=== PATIENT | female | born 1955 | race African-American/Black ===

== ENCOUNTER 2022-07-30 16:12 | Inpatient (IN) ==
--- NOTE | 2022-07-30 17:07 | EKG ---
Test Reason : PULMONARY EMBOLISM Blood Pressure : */* mmHG Vent. Rate : 77 BPM Atrial Rate : 77 BPM P-R Int : 160 ms QRS Dur : 74 ms QT Int : 426 ms P-R-T Axes : 42 -15 25 degrees QTc Int : 482 ms Normal sinus rhythm Septal infarct , age undetermined Abnormal ECG No previous ECGs available Confirmed by Jaleel Romero ([id number]) on 08/02/2022 2:40:41 PM Referred By: Confirmed By: Jaleel Romero
[2022-07-30 17:17] LABS: BASOPHILS % (AUTO) 0.4 % (0.2-1.0); HEMATOCRIT 38.8 % (36.0-47.0); HEMOGLOBIN 12.7 g/dL (12.0-16.0); LYMPHOCYTES # (AUTO) 1.8 X10^3/uL (1.3-2.9); MEAN CORPUSCULAR HEMOGLOBIN 25.8 pg (27.0-34.0); MEAN CORPUSCULAR HGB CONC 32.8 g/dL (33.0-35.0); MEAN CORPUSCULAR VOLUME 78.4 fL (80.0-100.0); MEAN PLATELET VOLUME 9.2 fL (7.4-11.0); MONOCYTES # (AUTO) 0.4 x10^3/uL (0.3-0.8); MONOCYTES % (AUTO) 9.9 % (0.0-13.0); NEUTROPHILS # (AUTO) 2.2 x10^3/uL (2.2-4.8); NEUTROPHILS % (AUTO) 48.7 % (42.0-75.0); RED BLOOD COUNT 4.95 X10^6/uL (3.5-5.4); WHITE BLOOD COUNT 4.6 X10^3/uL (3.6-10.0)
[2022-07-30 17:18] LABS: ALANINE AMINOTRANSFERASE 42 Units/L (12-78); ALBUMIN 3.6 g/dL (3.4-5.0); ALKALINE PHOSPHATASE 71 Units/L (46-116); ASPARTATE AMINO TRANSFERASE 26 Units/L (15-37); BLOOD UREA NITROGEN 9 mg/dL (7-18); CALCIUM 8.5 mg/dL (8.5-10.1); CARBON DIOXIDE 31.5 mmol/L (21-32); CHLORIDE 105 mmol/L (98-107); CREATININE 1.15 mg/dL (0.55-1.02); SODIUM 143 mmol/L (136-145); TOTAL PROTEIN 7.5 g/dL (6.4-8.2); eGFR NON BLACK RACES 50 (>60)
[2022-07-30] MEDS: NS 1,000 ML IV 1,000 ML IV SCH (17:39)
[2022-07-30] MEDS ORDERED: HEPARIN SODIUM INJ 5000 UNITS IVP ONE (17:57)
[2022-07-30] MEDS: HEPARIN SODIUM IN D5W 25,000 UNITS/500 ML BAG IV PRN (18:09)
[2022-07-30] MEDS ORDERED: DUONEB 0.5 MG/3 MG (3 mL) NEB ONE (19:53)
[2022-07-30] MEDS: DUONEB 0.5 MG/3 MG (3 mL) NEB SCH ×2 (20:03→21:01)
--- NOTE | 2022-07-31 02:54 | EKG ---
Test Reason : chest pain, sob Blood Pressure : */* mmHG Vent. Rate : 72 BPM Atrial Rate : 72 BPM P-R Int : 162 ms QRS Dur : 78 ms QT Int : 442 ms P-R-T Axes : 39 -2 42 degrees QTc Int : 483 ms Normal sinus rhythm Minimal voltage criteria for LVH, may be normal variant ( R in aVL ) Prolonged QT Abnormal ECG Confirmed by Jaleel Romero ([id number]) on 08/02/2022 2:39:01 PM Referred By: Confirmed By: Jaleel Romero
[2022-07-31 04:27] LABS: BASOPHILS % (AUTO) 1.3 % (0.2-1.0); EOSINOPHILS # (AUTO) 0.1 x10^3/uL (0.0-0.2); EOSINOPHILS % (AUTO) 2.2 % (0.9-2.9); HEMOGLOBIN 11.7 g/dL (12.0-16.0); LYMPHOCYTES # (AUTO) 2.1 X10^3/uL (1.3-2.9); LYMPHOCYTES % (AUTO) 54.1 % (21.0-51.0); MEAN CORPUSCULAR HEMOGLOBIN 25.8 pg (27.0-34.0); MEAN CORPUSCULAR HGB CONC 33.4 g/dL (33.0-35.0); MEAN CORPUSCULAR VOLUME 77.3 fL (80.0-100.0); MEAN PLATELET VOLUME 9.3 fL (7.4-11.0); MONOCYTES # (AUTO) 0.4 x10^3/uL (0.3-0.8); NEUTROPHILS # (AUTO) 1.2 x10^3/uL (2.2-4.8); NEUTROPHILS % (AUTO) 32.4 % (42.0-75.0); RED BLOOD COUNT 4.53 X10^6/uL (3.5-5.4); RED CELL DISTRIBUTION WIDTH 14.8 % (11.6-16.5); WHITE BLOOD COUNT 3.8 X10^3/uL (3.6-10.0)
[2022-07-31 04:39] LABS: ALANINE AMINOTRANSFERASE 32 Units/L (12-78); ALBUMIN 3.1 g/dL (3.4-5.0); ALKALINE PHOSPHATASE 59 Units/L (46-116); ASPARTATE AMINO TRANSFERASE 19 Units/L (15-37); BLOOD UREA NITROGEN 9 mg/dL (7-18); CARBON DIOXIDE 28.6 mmol/L (21-32); CHLORIDE 105 mmol/L (98-107); COR CA(FOR HYPOALB) 8.7 mg/dL (8.5-10.1); CREATINE KINASE 144 Units/L (26-192); CREATININE 0.95 mg/dL (0.55-1.02); SODIUM 140 mmol/L (136-145); TOTAL PROTEIN 6.4 g/dL (6.4-8.2); eGFR NON BLACK RACES > 60 (>60)
--- NOTE | 2022-07-31 04:50 | EKG ---
Test Reason : chest pain, sob Blood Pressure : */* mmHG Vent. Rate : 65 BPM Atrial Rate : 65 BPM P-R Int : 162 ms QRS Dur : 72 ms QT Int : 452 ms P-R-T Axes : 41 2 44 degrees QTc Int : 470 ms Normal sinus rhythm Normal ECG Confirmed by Jaleel Romero ([id number]) on 08/02/2022 2:38:29 PM Referred By: Confirmed By: Jaleel Romero
[2022-07-31] MEDS: NS 1,000 ML IV 1,000 ML IV SCH ×3 (05:26→19:21)
[2022-07-31] MEDS ORDERED: K-RIDER 10 MEQ/NS 100 ML 10 MEQ/100 ML BAG IV PRN (05:31)
[2022-07-31] MEDS ORDERED: KLOR-CON PO PRN (05:31)
[2022-07-31] MEDS ORDERED: POTASSIUM CHL 40 MEQ/NS 0.45% 500 ML IV PRN (05:31)
[2022-07-31] MEDS ORDERED: POTASSIUM CHLORIDE LIQ 20 MEQ UDC PO PRN (05:31)
[2022-07-31] MEDS ORDERED: POTASSIUM CHL 60 MEQ/NS 0.45% 500 ML IV PRN (05:31)
[2022-07-31] MEDS ORDERED: MICRO K EXTEN CAP 10 MEQ PO PRN (05:31)
[2022-07-31] MEDS: MAGNESIUM SULFATE 1 GRAM/100 mL PREMIX 1 G/100 ML BAG IV PRN ×2 (06:10→07:48)
[2022-07-31 06:24] LABS: ERYTHROCYTE SEDIMENTATION RATE 39 MM/HOUR (0-20)
[2022-07-31] MEDS ORDERED: HEPARIN SODIUM INJ 5000 UNITS ONE (07:39)
[2022-07-31] MEDS ORDERED: HEPARIN SODIUM INJ 5000 UNITS IVP ONE (07:46)
[2022-07-31] MEDS: K-DUR TAB 20 MEQ PO PRN (07:47)
[2022-07-31] MEDS: HEPARIN SODIUM IN D5W 25,000 UNITS/500 ML BAG IV PRN (07:48)
[2022-07-31] MEDS: DUONEB 0.5 MG/3 MG (3 mL) NEB SCH ×3 (09:14→20:10)
--- NOTE | 2022-07-31 13:03 | DR.H&P ---
H&P - History & Physical for Day of: H&P Date: 07/30/22 - Chief Complaint Chief Complaint: SOB, CHEST TIGHTNESS, PULMONARY EMBOLISM - History of Present Illness History of Present Illness: IS A 67 YEAR OLD PATIENT OF OURS. SHE PRESENTED TO OFFICE WITH COMPLAINTS OF PERSISTENT SHORTNESS OF BREATH AND CHEST TIGHTNESS. SYMPTOMS HAVE BEEN PRESENT SINCE THE END OF MAY, DESPITE TAKING MULTIPLE ROUNDS OF ANTIBIOTICS AND STEROIDS. SHE REPORTED THAT SHORTNESS OF BREATH WAS PRESENT AT REST, BUT GOT WORSE WITH EXERTION. HER PMH INCLUDES HTN, OSTEOPOROSIS, PREDIABETES, DEPRESSION, , AND HYSTERECTOMY. PATIENT WAS SENT TO THE HOSPITAL ON 07/30/22 FOR OUTPATIENT CHEST CTA. FINDINGS REVEALED: Several subtle subsegmental pulmonary arterial filling defects are seen within the branch pulmonary arteries to the lower lobes and right middle lobe which would be compatible with very subtle pulmonary emboli at these locations. Bibasilar ground-glass changes are also noted. Mildly enlarged heart without a pericardial effusion observed. Borderline right hilar adenopathy which can be followed up with repeat chest CT imaging in 3 months for assurance. No other concerning lymph nodes appreciated. No other acute cardiopulmonary process is seen. DECISION WAS MADE TO ADMIT PATIENT TO THE HOSPTIAL INPATIENT STATUS FOR FURTHER TREATMENT OF BILATERAL PULMONARY EMBOLI. ON ARRIVAL TO THE HOSPTIAL, HER VITALS WERE: 98.2-83-19-99%-145/69. LABS WERE OBTAINED. WBC 4.6, RBC 4.95, HGB 12.7, HCT 38.8, PLT COUNT 153, ESR 39, PT 13.9, INR 1.10, PTT 24.4, SODIUM 143, POTASSIUM 3.6, CHLORIDE 105, CARBON DIOXIDE 31.5, BUN 9, CREATININE 1.15, GLUCOSE 80, CALCIUM 8.5, TOTAL BILI 0.40, AST 26, VIDYA 42, ALK PHOS 71, CRP 2.70, TOTAL PROTEIN 7.5, ALBUMIN 3.6, CREATINE KINASE 201, TROPONIN 5.9. A HYPERCOAGULABLE PANEL WAS COLLECTED. COVID-19 NEGATIVE. AN EKG WAS OBTAINED AND REVEALED: NORMAL SINUS RHYTHM WITH HR 77. SHE WAS STARTED ON NORMAL SALINE AT 50 ML/HR, A HEPARIN DRIP, DUONEBS TID, AND THE POTASSIUM AND MAGNESIUM PROTOCOLS. WE WILL RESUME HER HOME MEDICATIONS OF TESSALON PERLES, HCTZ, AND FLONASE. WE WILL OBTAIN AN ECHOCARDIOGRAM, CAROTID DOPPLER, AND BILATERAL LOWER EXTREMITY VENOUS DOPPLERS TO RULE OUT DVT. OTHERWISE, WE WILL FOLLOW-UP WITH AM LABS AND CONTINUE TO MONITOR. TIME SPENT ON CLINICAL ASSESSMENT, REVIWING LABS AND IMAGING, DECISION MAKING, AND DOCUMENTATION GREATER THAN 75 MINUTES. - Past Medical History Past Medical History: Depression, Hypertension Additional Medical History: OSTEOPOROSIS, PREDIABETES - Past Surgical History Surgical History: , Hysterectomy - Family History Family Medical History: Diabetes Mellitus, Cancer, [place], Coronary Artery Disease - Social History Does patient currently use any type of tobacco product: No Have you used tobacco products in the last 12 months: No Type of Tobacco Use: None Does any household member use tobacco: No Alcohol Use: None Drug Use: None - Medications Home Medications: moxifloxacin [From Avelox] Allergy (Verified 01/01/21 13:41) CONTINUE taking the following medications fluticasone propionate 50 mcg/actuation nasal spray,suspension 2 spray intranasal BID 07/30/22 [History] hydrochlorothiazide 25 mg tablet 1 tab PO QDAY 07/30/22 [History] meloxicam 15 mg tablet 1 tab PO QDAY 07/30/22 [History] - Review of Systems Constitutional: Weakness Eyes: No Symptoms Reported ENT: No Symptoms Reported Respiratory: Shortness of Breath, SOB with Excertion Cardiovascular: No Symptoms Reported Gastrointestinal: No Symptoms Reported Genitourinary: No Symptoms Reported Musculoskeletal: No Symptoms Reported Skin: No Symptoms Reported Neurological: Weakness - Physical Exam Vital Signs: Temperature 98.2 F Pulse Rate 67 Respiratory Rate 25 Blood Pressure [Left Arm] 136/58 Blood Pressure 123/73 O2 Sat by Pulse Oximetry 100 Oriented: Normal Eyes: Normal Ear: Normal Nose: Normal Throat: Normal Respiratory: Diminished Throughout Cardiovascular: Normal : Normal Auscultation: Bowel Sounds: Normal Palpation: Normal Tenderness: Normal Skin: Normal Musculoskeletal: Normal Psychiatric: Normal Mood Description: Calm Affect: Normal Speech Pattern: Clear - Assessment/Plan (1) Bilateral pulmonary embolism Status: Acute Plan: ADMIT, NORMAL SALINE AT 50 ML/HR, A HEPARIN DRIP, DUONEBS TID, AND THE POTASSIUM AND MAGNESIUM PROTOCOLS. RESUME HOME MEDS OF TESSALON PERLES, HCTZ, FLONASE (2) HTN (hypertension) Qualifiers: Hypertension type: primary hypertension Qualified Code(s): I10 - Essential (primary) hypertension Status: Chronic (3) Allergic rhinitis Qualifiers: Allergic rhinitis trigger: unspecified Allergic rhinitis seasonality: unspecified Qualified Code(s): J30.9 - Allergic rhinitis, unspecified Status: Acute - Allergies Allergies/Adverse Reactions: Allergies Allergy/AdvReac Type Severity Reaction Status Date / Time moxifloxacin [From Avelox] Allergy Verified 01/01/21 13:41
[2022-07-31] MEDS: TESSALON PERLES PO SCH ×2 (14:41→21:05)
[2022-07-31] MEDS: FLONASE NASAL SPRAY ENOSTRIL SCH ×2 (14:41→21:05)
[2022-07-31] MEDS: HYDROCHLOROTHIAZIDE 25 MG TAB PO SCH (14:42)
--- NOTE | 2022-07-31 16:08 | VAS ---
HISTORY: [Extremity pain, swelling, and edema]Study: Bilateral lower extremity Doppler venous ultrasound.TECHNIQUE: Multiple gutiérrez scale and color flow Doppler images of the deep venous system were obtained of the [right and left] lower extremity.FINDINGS:The deep venous system of the [right and left lower extremities were] evaluated from the level of the common femoral veins through the popliteal veins, bilaterally. Normal color flow and augmentation can be observed. In addition, normal compression is seen throughout the deep venous system. No Sanches's cyst is seen.IMPRESSION:1. Negative examination for DVT.Electronically signed by: PAOLA ROCA III (Jul 31, 2022 16:07:21)
--- NOTE | 2022-07-31 16:42 | VAS ---
HISTORY: Concern for carotid artery stenosis. Hypertension.EXAM: BILATERAL DOPPLER CAROTID ULTRASOUND EXAMTechnique: Multiple gutiérrez scale and color flow Doppler images of the right and left carotid arterial system were obtained.The vertebral arterial system was evaluated as well.Findings: Nonocclusive color flow Doppler is seen throughout the right and left carotid arterial system. No hemodynamically significant carotid arterial stenosis is seen based on velocity criteria. There is mild bilateral carotid atherosclerosis and soft atherosclerotic plaque formation of the bilateral carotid bulbs and ICAs with associated intimal thickening but without evidence for high-grade stenosis (>70%) or occlusion of the carotid arteries. The right and left vertebral artery demonstrate antegrade flow.IMPRESSION:Mild bilateral carotid atherosclerosis and plaque formation of the bilateral carotid bulbs and [in both] ICAs with [id number] associated carotid intimal thickening but without evidence for high-grade stenosis or occlusion of the carotid arteries, based on Doppler velocity criteria.Appropriate, antegrade, vertebral arterial flow.Peak right ICA velocity: 63 centimeter/seconds.Peak right CCA velocity: 73 centimeter/seconds.Peak left ICA velocity: 66 centimeter/seconds.Peak left CCA velocity: 85 centimeter/seconds.Right ICA to CCA ratio: 0.83.Left ICA to CCA ratio: 0.86.Electronically signed by: PAOLA ROCA III (Jul 31, 2022 16:40:38)
[2022-08-01 04:55] LABS: BASOPHILS % (AUTO) 0.6 % (0.2-1.0); EOSINOPHILS # (AUTO) 0.1 x10^3/uL (0.0-0.2); EOSINOPHILS % (AUTO) 2.6 % (0.9-2.9); HEMATOCRIT 36.6 % (36.0-47.0); LYMPHOCYTES # (AUTO) 1.7 X10^3/uL (1.3-2.9); LYMPHOCYTES % (AUTO) 46.4 % (21.0-51.0); MEAN CORPUSCULAR HEMOGLOBIN 25.5 pg (27.0-34.0); MEAN CORPUSCULAR HGB CONC 32.9 g/dL (33.0-35.0); MEAN CORPUSCULAR VOLUME 77.5 fL (80.0-100.0); MEAN PLATELET VOLUME 9.2 fL (7.4-11.0); MONOCYTES # (AUTO) 0.5 x10^3/uL (0.3-0.8); MONOCYTES % (AUTO) 12.5 % (0.0-13.0); NEUTROPHILS # (AUTO) 1.4 x10^3/uL (2.2-4.8); NEUTROPHILS % (AUTO) 37.9 % (42.0-75.0); RED BLOOD COUNT 4.72 X10^6/uL (3.5-5.4); RED CELL DISTRIBUTION WIDTH 15.1 % (11.6-16.5); WHITE BLOOD COUNT 3.6 X10^3/uL (3.6-10.0)
[2022-08-01] MEDS: DUONEB 0.5 MG/3 MG (3 mL) NEB SCH ×2 (05:00→13:00)
[2022-08-01] MEDS: TESSALON PERLES PO SCH (05:03)
[2022-08-01 05:09] LABS: ALANINE AMINOTRANSFERASE 28 Units/L (12-78); ALBUMIN 3.1 g/dL (3.4-5.0); ALKALINE PHOSPHATASE 64 Units/L (46-116); ASPARTATE AMINO TRANSFERASE 17 Units/L (15-37); BLOOD UREA NITROGEN 9 mg/dL (7-18); CALCIUM 8.2 mg/dL (8.5-10.1); CARBON DIOXIDE 28.9 mmol/L (21-32); CHLORIDE 105 mmol/L (98-107); COR CA(FOR HYPOALB) 8.9 mg/dL (8.5-10.1); CREATININE 0.91 mg/dL (0.55-1.02); MAGNESIUM 1.8 mg/dL (2.0-2.9); SODIUM 140 mmol/L (136-145); TOTAL PROTEIN 6.7 g/dL (6.4-8.2); eGFR NON BLACK RACES > 60 (>60)
[2022-08-01] MEDS: MAGNESIUM SULFATE 1 GRAM/100 mL PREMIX 1 G/100 ML BAG IV PRN ×2 (05:52→08:13)
[2022-08-01] MEDS: K-DUR TAB 20 MEQ PO PRN (08:11)
[2022-08-01] MEDS: FLONASE NASAL SPRAY ENOSTRIL SCH (08:12)
[2022-08-01] MEDS: HYDROCHLOROTHIAZIDE 25 MG TAB PO SCH (08:12)
[2022-08-01] MEDS: NS 1,000 ML IV 1,000 ML IV SCH (08:15)
[2022-08-01] MEDS ORDERED: XARELTO PO SCH (10:00)
[2022-08-01] MEDS ORDERED: AUGMENTIN 500 MG/125 MG TAB PO SCH (13:00)
[2022-08-01 14:02] VITALS: BP 143/70
[2022-08-05 06:08] LABS: ANTI-NUCLEAR ANTIBODY TEST None Detected (None Detected)
[2022-08-05 06:12] LABS: PROTEIN C ACTIVITY 164 % (83-168)
[2022-08-06 13:22] LABS: PROTHROMBIN G20210A Negative
== END 2022-08-01 14:23 | disposition home or self-care (01) | DRG 176 ==
LOC: ICU → OBSVTOIN 16:19
PROVIDERS: ADMIT Internal Medicine; ATTEND Internal Medicine
DX: B96.29 Other Escherichia coli [E. coli] as the cause of diseases classified elsewhere; I26.99 Other pulmonary embolism without acute cor pulmonale; I10 Essential (primary) hypertension; R06.02 Shortness of breath; R70.0 Elevated erythrocyte sedimentation rate; R07.89 Other chest pain; J30.89 Other allergic rhinitis

== ENCOUNTER 2023-07-21 10:40 | Observation (INO) ==
[2023-07-21 13:01] VITALS: BMI 35.4
[2023-07-21] MEDS ORDERED: TUSSIONEX PENNKINETIC SUSP PO PRN (15:37)
--- NOTE | 2023-07-21 16:03 | EKG ---
Test Reason : chest pain Blood Pressure : */* mmHG Vent. Rate : 60 BPM Atrial Rate : 60 BPM P-R Int : 152 ms QRS Dur : 72 ms QT Int : 450 ms P-R-T Axes : 36 -6 43 degrees QTc Int : 450 ms Normal sinus rhythm Moderate voltage criteria for LVH, may be normal variant ( R in aVL , [place] product ) Septal infarct , age undetermined Abnormal ECG When compared with ECG of 31-JUL-2022 04:33, T wave inversion now evident in Anterior leads Confirmed by Jaleel Romero ([id number]) on 07/24/2023 12:58:34 PM Referred By: Confirmed By: Jaleel Romero
[2023-07-21] MEDS ORDERED: NS 1/2 1,000 ML IV 1,000 ML IV ONE (16:23)
[2023-07-21 16:24] LABS: BASOPHILS # (AUTO) 0.1 X10^3/uL (0.0-0.1); BASOPHILS % (AUTO) 1.2 % (0.2-1.0); HEMATOCRIT 41.3 % (36.0-47.0); HEMOGLOBIN 13.3 g/dL (12.0-16.0); LYMPHOCYTES # (AUTO) 2.1 X10^3/uL (1.3-2.9); LYMPHOCYTES % (AUTO) 28.1 % (21.0-51.0); MEAN CORPUSCULAR HEMOGLOBIN 25.1 pg (27.0-34.0); MEAN CORPUSCULAR HGB CONC 32.1 g/dL (33.0-35.0); MEAN CORPUSCULAR VOLUME 78.1 fL (80.0-100.0); MEAN PLATELET VOLUME 8.6 fL (7.4-11.0); MONOCYTES # (AUTO) 0.7 x10^3/uL (0.3-0.8); MONOCYTES % (AUTO) 8.9 % (0.0-13.0); NEUTROPHILS # (AUTO) 4.6 x10^3/uL (2.2-4.8); NEUTROPHILS % (AUTO) 61.8 % (42.0-75.0); PLATELET COUNT 213 X10^3/uL (150.0-450.0); RED BLOOD COUNT 5.29 X10^6/uL (3.5-5.4); RED CELL DISTRIBUTION WIDTH 15.9 % (11.6-16.5); WHITE BLOOD COUNT 7.5 X10^3/uL (3.6-10.0)
[2023-07-21] MEDS: VSL#3 PO SCH (16:35)
[2023-07-21] MEDS: NS 1/2 1,000 ML IV 1,000 ML IV SCH (16:36)
[2023-07-21] MEDS: ROBITUSSIN DM PO SCH ×2 (16:36→20:52)
[2023-07-21] MEDS: ZOSYN VIAL 4.5 GRAMS 4.5 G in NS 100 ML IV 100 ML IV SCH ×2 (16:36→22:00)
[2023-07-21] MEDS: PULMICORT NEB TX 0.5 MG NEB SCH ×2 (16:39→20:20)
[2023-07-21 16:41] LABS: ALANINE AMINOTRANSFERASE 17 Units/L (12-78); ALBUMIN 3.9 g/dL (3.4-5.0); ALKALINE PHOSPHATASE 73 Units/L (46-116); ASPARTATE AMINO TRANSFERASE 7 Units/L (15-37); BLOOD UREA NITROGEN 13 mg/dL (7-18); CALCIUM 8.9 mg/dL (8.5-10.1); CARBON DIOXIDE 31.9 mmol/L (21-32); CHLORIDE 102 mmol/L (98-107); CREATININE 1.19 mg/dL (0.55-1.02); GLUCOSE 110 mg/dL (65-99); POTASSIUM 3.4 mmol/L (3.5-5.1); SODIUM 140 mmol/L (136-145); TOTAL PROTEIN 8.1 g/dL (6.4-8.2); eGFR NON BLACK RACES 48 (>60)
[2023-07-21] MEDS ORDERED: CONSULT PHARMACY - POTASSIUM & MAGNESIUM XX SCH (17:00)
[2023-07-21] MEDS: DUONEB 0.5 MG/3 MG (3 mL) NEB SCH ×2 (17:10→20:20)
[2023-07-21] MEDS ORDERED: K-DUR TAB 20 MEQ PO ONE (18:00)
--- NOTE | 2023-07-21 19:46 | RAD ---
PROCEDURE: Chest X-ray 1 View . HISTORY: Pneumonia. TECHNIQUE: AP view . COMPARISON: 01/01/2021. TECHNICAL QUALITY: Satisfactory . FINDINGS: Normal size heart . Mediastinum and hilar regions show no masses or lymphadenopathy . Normal central vascularity . No pulmonary consolidation, masses, pleural fluid, or pneumothorax . No acute bony abnormality . IMPRESSION: No active cardiopulmonary disease . Electronically signed by: Julio Hensley (Jul 21, 2023 19:44:36)
[2023-07-22] MEDS ORDERED: NS 1/2 1,000 ML IV 1,000 ML IV ONE ×2 (05:31→19:04)
[2023-07-22] MEDS: ZOSYN VIAL 4.5 GRAMS 4.5 G in NS 100 ML IV 100 ML IV SCH ×3 (05:48→22:00)
[2023-07-22] MEDS: MILK OF MAGNESIA PO PRN ×2 (05:54→23:41)
[2023-07-22 06:38] LABS: BASOPHILS % (AUTO) 0.4 % (0.2-1.0); EOSINOPHILS % (AUTO) 0.3 % (0.9-2.9); HEMATOCRIT 36.1 % (36.0-47.0); HEMOGLOBIN 11.7 g/dL (12.0-16.0); LYMPHOCYTES # (AUTO) 2.8 X10^3/uL (1.3-2.9); LYMPHOCYTES % (AUTO) 51.3 % (21.0-51.0); MEAN CORPUSCULAR HEMOGLOBIN 25.3 pg (27.0-34.0); MEAN CORPUSCULAR HGB CONC 32.4 g/dL (33.0-35.0); MEAN CORPUSCULAR VOLUME 78.1 fL (80.0-100.0); MEAN PLATELET VOLUME 9.3 fL (7.4-11.0); MONOCYTES # (AUTO) 0.5 x10^3/uL (0.3-0.8); NEUTROPHILS # (AUTO) 2.2 x10^3/uL (2.2-4.8); PLATELET COUNT 166 X10^3/uL (150.0-450.0); RED BLOOD COUNT 4.62 X10^6/uL (3.5-5.4); RED CELL DISTRIBUTION WIDTH 15.8 % (11.6-16.5); WHITE BLOOD COUNT 5.5 X10^3/uL (3.6-10.0)
[2023-07-22 07:00] LABS: ALANINE AMINOTRANSFERASE 12 Units/L (12-78); ALBUMIN 3.1 g/dL (3.4-5.0); ALKALINE PHOSPHATASE 57 Units/L (46-116); ASPARTATE AMINO TRANSFERASE 10 Units/L (15-37); BLOOD UREA NITROGEN 10 mg/dL (7-18); CALCIUM 8.2 mg/dL (8.5-10.1); CARBON DIOXIDE 27.6 mmol/L (21-32); CHLORIDE 105 mmol/L (98-107); COR CA(FOR HYPOALB) 8.9 mg/dL (8.5-10.1); CREATININE 1.02 mg/dL (0.55-1.02); GLUCOSE 86 mg/dL (65-99); POTASSIUM 3.8 mmol/L (3.5-5.1); SODIUM 142 mmol/L (136-145); TOTAL PROTEIN 6.5 g/dL (6.4-8.2); eGFR NON BLACK RACES 58 (>60)
[2023-07-22] MEDS: ROBITUSSIN DM PO SCH ×4 (09:12→21:05)
[2023-07-22] MEDS: VSL#3 PO SCH (09:13)
[2023-07-22] MEDS: DUONEB 0.5 MG/3 MG (3 mL) NEB SCH ×5 (09:17→20:50)
[2023-07-22] MEDS: PULMICORT NEB TX 0.5 MG NEB SCH ×2 (09:17→20:50)
--- NOTE | 2023-07-22 11:03 | DR.UPDATE ---
H&P Update Prescription drug monitoring program results: PDMP was not reviewed H&P Reviewed: Yes Any changes to H&P?: Yes Changes noted:: WAS A DIRECT ADMISSION, OBSERVATION STATUS, FOR TREATMENT OF CHEST PAIN RULE OUT ACUTE OR, SHORTNESS OF BREATH, AND BRONCHITIS. SHE REPORTS THAT HER BLOOD PRESSURE HAS ALSO BEEN ELEVATED. SYMPTOMS STARTED ABOUT 3 DAYS PRIOR TO ARRIVAL. SHE DESCRIBES CHEST PAIN INTERMITTENT AND SHARP. SHE RATES PAIN A 4/10 ON ADMISSION. COUGH HAS BEEN NON-PRODUCTIVE. ON ADMISSION, HER VITALS WERE: 98.1-64-20-98%-145/81. LABS WERE OBTAINED. WBC 7.5, RBC 5.29, HGB 13.3, HCT 41.3, PLT COUNT 213, D-DIMER <0.27, SODIUM 140, POTASSIUM 3.4, CHLORIDE 102, BUN 13, CREATININE 1.19, GLUCOSE 110, CALCIUM 8.9, TOTAL BILI 0.30, AST 7, ALT 17, ALK PHOS 73, CREATINE KINASE 176, TROPONIN 5.0, BNP 8.1, TOTAL PROTEIN 8.1, ALBUMIN 3.9, MAGNESIUM 2.3. COVID, INFLUENZA, AND RSV NEGATIVE. RESPIRATORY VIRAL PANEL IS PENDING. BLOOD CULTURES WERE SET UP. A CHEST XRAY WAS OBTAINED AND REVEALED: Normal size heart. Mediastinum and hilar regions show no masses or lymphadenopathy. Normal central vascularity. No pulmonary consolidation, masses, pleural fluid, or pneumothorax. No acute bony abnormality. EKG WAS OBTAINED AND REVEALED: NORMAL SINUS RHYTHM WIT HHR 60 BPM. ON ADMISSION, SHE WAS STARTED ON NORMAL SALINE AT 75 ML/HR, ZOSYN 4.5G IV TID, DUONEBS QID, PULMICORT NEBS BID, TUSSIONEX 5ML Q12H PRN, PROBIOTICS DAILY, MILK OF MAGNESIA 30ML Q12H PRN. WE WILL RESUME HER HOME MEDICATIONS OF XARELTO, HYDRALAZINE, VITAMIN D2, PANTOPRAZOLE, MELOXICAM, HCTZ, FLONASE, AND TESSALON PERLES. OTHERWISE, WE WILL FOLLOW UP WITH AM LABS AND CONTINUE TO MONITOR. TIME SPENT ON CLINICAL ASSESSMENT, REVIEWING LABS AND IMAGING, DECISION MAKING, AND DOCUMENTATION GREATER THAN 75 MINUTES. Patient was examined?: Yes Vital Signs: Temp Pulse Pulse Resp BP BP Pulse Ox 07/22/23 09:17 72 99 07/22/23 09:17 07/22/23 07:00 07/22/23 04:00 98.6 F 59 L 20 134/63 100 07/22/23 00:00 98.1 F 62 18 136/67 100 07/21/23 20:00 98 F 76 20 125/60 100 07/21/23 19:00 07/21/23 20:20 67 99 07/21/23 20:20 07/21/23 17:10 75 100 07/21/23 15:47 07/21/23 15:37 98.3 F 20 143/70 100 07/21/23 16:00 98.3 F 75 20 116/61 100 07/21/23 13:34 98.1 F 64 20 145/81 98 07/21/23 12:11 O2 Del Method O2 Flow Rate FiO2 07/22/23 09:17 07/22/23 09:17 Room Air 07/22/23 07:00 Room Air 07/22/23 04:00 Nasal Cannula 2 07/22/23 00:00 Nasal Cannula 2 07/21/23 20:00 Nasal Cannula 2 07/21/23 19:00 Room Air 07/21/23 20:20 07/21/23 20:20 Nasal Cannula 2 07/21/23 17:10 07/21/23 15:47 Nasal Cannula 2 07/21/23 15:37 Nasal Cannula 2 07/21/23 16:00 Nasal Cannula 2 07/21/23 13:34 Room Air 07/21/23 12:11 Room Air
[2023-07-22] MEDS: NS 1/2 1,000 ML IV 1,000 ML IV SCH ×3 (14:01→21:06)
[2023-07-23] MEDS: ZOSYN VIAL 4.5 GRAMS 4.5 G in NS 100 ML IV 100 ML IV SCH ×3 (06:07→22:50)
[2023-07-23 06:28] LABS: BASOPHILS % (AUTO) 0.9 % (0.2-1.0); EOSINOPHILS # (AUTO) 0.1 x10^3/uL (0.0-0.2); EOSINOPHILS % (AUTO) 1.8 % (0.9-2.9); HEMATOCRIT 40.4 % (36.0-47.0); LYMPHOCYTES # (AUTO) 2.5 X10^3/uL (1.3-2.9); LYMPHOCYTES % (AUTO) 53.7 % (21.0-51.0); MEAN CORPUSCULAR HEMOGLOBIN 25.1 pg (27.0-34.0); MEAN CORPUSCULAR HGB CONC 32.1 g/dL (33.0-35.0); MEAN CORPUSCULAR VOLUME 78.2 fL (80.0-100.0); MEAN PLATELET VOLUME 9.2 fL (7.4-11.0); MONOCYTES # (AUTO) 0.4 x10^3/uL (0.3-0.8); MONOCYTES % (AUTO) 8.6 % (0.0-13.0); NEUTROPHILS # (AUTO) 1.6 x10^3/uL (2.2-4.8); PLATELET COUNT 162 X10^3/uL (150.0-450.0); RED BLOOD COUNT 5.17 X10^6/uL (3.5-5.4); RED CELL DISTRIBUTION WIDTH 15.7 % (11.6-16.5); WHITE BLOOD COUNT 4.6 X10^3/uL (3.6-10.0)
[2023-07-23 06:50] LABS: ALANINE AMINOTRANSFERASE 15 Units/L (12-78); ALBUMIN 3.5 g/dL (3.4-5.0); ALKALINE PHOSPHATASE 72 Units/L (46-116); ASPARTATE AMINO TRANSFERASE 16 Units/L (15-37); BLOOD UREA NITROGEN 7 mg/dL (7-18); CALCIUM 8.6 mg/dL (8.5-10.1); CARBON DIOXIDE 27.4 mmol/L (21-32); CHLORIDE 106 mmol/L (98-107); CREATININE 0.89 mg/dL (0.55-1.02); GLUCOSE 80 mg/dL (65-99); SODIUM 141 mmol/L (136-145); TOTAL PROTEIN 7.5 g/dL (6.4-8.2); eGFR NON BLACK RACES > 60 (>60)
[2023-07-23 06:51] LABS: POTASSIUM 4.4 mmol/L (3.5-5.1)
[2023-07-23] MEDS: DUONEB 0.5 MG/3 MG (3 mL) NEB SCH ×4 (09:08→21:15)
[2023-07-23] MEDS: PULMICORT NEB TX 0.5 MG NEB SCH ×2 (09:08→21:15)
[2023-07-23] MEDS ORDERED: NS 1/2 1,000 ML IV 1,000 ML IV ONE (09:44)
[2023-07-23] MEDS ORDERED: OMNIPAQUE 350 mg/mL 100 mL BTL 100 ML ONE (09:44)
[2023-07-23] MEDS: COLACE CAP 100 MG PO PRN (09:48)
[2023-07-23] MEDS: MILK OF MAGNESIA PO PRN (09:48)
[2023-07-23] MEDS: VSL#3 PO SCH (09:48)
[2023-07-23] MEDS: ROBITUSSIN DM PO SCH ×4 (09:48→20:50)
[2023-07-23] MEDS: XARELTO PO SCH ×2 (09:48→10:43)
[2023-07-23] MEDS: NS 1/2 1,000 ML IV 1,000 ML IV SCH (09:49)
[2023-07-23] MEDS ORDERED: TESSALON PERLES PO SCH (10:00)
[2023-07-23] MEDS: MOBIC TAB 15 MG PO SCH (10:27)
[2023-07-23] MEDS: APRESOLINE TAB 25 MG PO SCH ×4 (10:27→21:54)
[2023-07-23] MEDS: HYDROCHLOROTHIAZIDE 25 MG TAB PO SCH (10:28)
[2023-07-23] MEDS: PROTONIX INJ 40 MG VIAL IVP SCH ×2 (10:31→20:52)
[2023-07-23] MEDS: LEVSIN/MAALOX/LIDOC VISC PO SCH ×4 (10:33→20:53)
[2023-07-23] MEDS: FLONASE NASAL SPRAY ENOSTRIL SCH ×2 (10:34→20:50)
[2023-07-23] MEDS: PEPCID 20 MG VIAL 20 MG in NS 50 ML IV 50 ML IV SCH ×2 (10:35→20:52)
[2023-07-23] MEDS ORDERED: TESSALON PERLES PO PRN (10:43)
--- NOTE | 2023-07-23 11:18 | CT ---
EXAM:CTA, CHESTHISTORY:SOB, CHEST PAIN, POSS PE, PNEUMONIA;COMPARISON:Chest radiograph from 07/21/2023. CTA chest 01/22/2023.TECHNIQUE:CTA chest protocol with axial images from the thoracic inlet to upper abdomen with IV contrast. Sagittal and coronal reformats and MIP images were created. Automated exposure control was utilized.FINDINGS:Limitations: There is streak artifact from contrast in the right subclavian vein and SVC. Mild motion artifact.The visualized thyroid gland appears benign. Mildly atherosclerotic normal caliber thoracic aorta. The pulmonary artery is normal in caliber centrally. No central PE. No discernible peripheral PE but evaluation is mildly limited. The heart is mildly enlarged. No pericardial effusion. No pathologic adenopathy in the thorax. The visualized upper abdomen has a benign appearance. No acute osseous abnormality. The trachea and mainstem bronchi appear patent. Mild dependent subsegmental atelectasis. No consolidation. No pleural effusion or pneumothorax.IMPRESSION:No central PE. No discernible peripheral PE but evaluation is mildly limited.Heart is mildly enlarged. Mild dependent subsegmental atelectasis.THIS IS AN ELECTRONICALLY VERIFIED FINAL REPORT07/23/2023 11:14 AM - Electronically signed by Forest Cleveland MD
--- NOTE | 2023-07-23 11:44 | PCM.PROG ---
Progress Note - Progress Note for Day of Date of Exam: 07/22/23 - Subjective Subjective: IS CURRENTLY OBSERVATION STATUS FOR TREATMENT OF ACUTE BRONCHITIS, SHORTNESS OF BREATH, AND CHEST PAIN RULE OUT ACUTE RI. TODAY, SHE IS ALERT AND ORIENTED, SITTING UP IN BED ON MORNING ROUDNS. SHE CONTINUES TO REPORT SHORTNESS OF BREATH AND AN OCCASIONAL COUGH. NURSING STAFF REPORTS THAT SHE HAS HAD AN UNEVENTFUL NIGHT. HER OXYGEN SATURATIONS HAVE REMAINED IN THE UPPER 90S ON ROOM AIR. UPON EXAMINATION, HEART IS REGULAR IN RATE AND RHYTHM. BILATERAL LUNGS ARE NOTED WITH DIMINISHED LUNG SOUNDS THROUGHOUT. ABDOMEN IS ROUND, SOFT, AND NON-TENDER WITH NORMAL BOWEL SOUNDS NOTED IN ALL QUADRANTS. GOOD RANGE OF MOTION NOTED TO UPPER AND LOWER EXTREMITIES WITH NO EDEMA NOTED. HER VITALS THIS MORNING ARE: 98.3-66-18-95%-128/72. LABS WERE OBTAINED. WBC 4.6, RBC 5.17, HGB 13.0, HCT 40.4, PLT COUNT 162, D-DIMER <0.27, SODIUM 142, POTASSIUM 3.8, CHLORIDE 105, CARBON DIOXIDE 27.6, BUN 10, CREATININE 1.02, GLUCOSE 86, CALCIUM 8.2, TOTAL BILI 0.40, AST 10, ALT 12, ALK PHOS 57, TOTAL PROTEIN 6.5, ALBUMIN 3.1. BLOOD CULTURES ARE PENDING. PATIENT DID HAVE A CHEST CT WITHOUT CONTRAST ON 07/18/23. IT REVEALED: MILD AIRSPACE INFILTRATES IN THE LEFT LOWER LOB ARE NONSPECIFIC AND COULD REPRESENTED HYPOVENTILATORY CHANGE OR DEVELOPING INFECTIOUS PROCESS SUCH PNEUMONIA. SHE IS CURRENTLY RECEIVING NORMAL SALINE AT 75 ML/HR, ZOSYN 4.5G IV TID, DUONEBS QID, PULMICORT NEBS BID, TUSSIONEX 5ML Q12H PRN, PROBIOTICS DAILY, MILK OF MAGNESIA 30ML Q12H PRN. WE RESUMED HER HOME MEDICATIONS OF XARELTO, HYDRALAZINE, VITAMIN D2, PANTOPRAZOLE, MELOXICAM, HCTZ, FLONASE, AND TESSALON PERLES. WE WILL CONTINUE WITH CURRENT PLAN OF CARE TODAY. DUE TO HER HX OF PULMONARY EMBOLISM, WE WILL OBTAIN A CHEST CTA. OTHERWISE, WE PLAN TO FOLLOW UP WITH AM LABS AND CONTINUE TO MONITOR. TIME SPENT ON CLINICAL ASSESSMENT, REVIEWING LABS AND IMAGING, DECISION MAKING, AND DOCUMENTATION GREATER THAN 45 MINUTES. - Past Medical Family Social History Past Med/Fam/Surg Hx: No changes since H&P Allergies: Allergies moxifloxacin [From Avelox] Allergy (Verified 01/01/21 13:41) - Review of Systems ROS: No change since H&P - Vital Signs and I&O's Vital Signs: Vital Signs Temperature 97.9 F Temperature 98.1 F Pulse Rate [Right Radial] 73 Pulse Rate [Right Radial] 74 Pulse Rate 78 Respiratory Rate 18 Respiratory Rate 18 Respiratory Rate 18 Blood Pressure [Left Arm] 143/72 Blood Pressure [Left Arm] 175/77 O2 Sat by Pulse Oximetry 98 O2 Sat by Pulse Oximetry 98 O2 Sat by Pulse Oximetry 100 Intake and Output: Intake & Output 07/20/23 07/21/23 07/22/23 07/23/23 11:59 11:59 11:59 11:59 Intake Total 1428 / 1428 2242 / 2242 Output Total 320 / 320 Balance 1428 / 1428 1922 / 1922 - Physical Exam Oriented: Normal Eyes: Normal Ear: Normal Nose: Normal Throat: Normal Respiratory: Normal Cardiovascular: Normal : Normal Auscultation: Bowel Sounds: Normal Palpation: Normal Tenderness: Normal Skin: Normal Musculoskeletal: Normal Psychiatric: Normal Affect: Normal Speech Pattern: Clear, Appropriate - Laboratory and Diagnostics Result Diagrams: 07/23/23 05:35 07/23/23 05:35 Labs: 07/21/23 16:08 Blood Blood Culture - Preliminary 07/21/23 15:44 Blood Blood Culture - Preliminary Laboratory WBC 4.6 X10^3/uL (3.6-10.0) 07/23/23 05:35 RBC 5.17 X10^6/uL (3.5-5.4) 07/23/23 05:35 Hgb 13.0 g/dL (12.0-16.0) 07/23/23 05:35 Hct 40.4 % (36.0-47.0) 07/23/23 05:35 MCV 78.2 fL (80.0-100.0) L 07/23/23 05:35 MCH 25.1 pg (27.0-34.0) L 07/23/23 05:35 MCHC 32.1 g/dL (33.0-35.0) L 07/23/23 05:35 RDW 15.7 % (11.6-16.5) 07/23/23 05:35 Plt Count 162 X10^3/uL (150.0-450.0) 07/23/23 05:35 MPV 9.2 fL (7.4-11.0) 07/23/23 05:35 Neut % (Auto) 35.0 % (42.0-75.0) L 07/23/23 05:35 Lymph % (Auto) 53.7 % (21.0-51.0) H 07/23/23 05:35 [place] % (Auto) 8.6 % (0.0-13.0) 07/23/23 05:35 Eos % (Auto) 1.8 % (0.9-2.9) 07/23/23 05:35 Baso % (Auto) 0.9 % (0.2-1.0) 07/23/23 05:35 Neut # (Auto) 1.6 x10^3/uL (2.2-4.8) L 07/23/23 05:35 Lymph # (Auto) 2.5 X10^3/uL (1.3-2.9) 07/23/23 05:35 [place] # (Auto) 0.4 x10^3/uL (0.3-0.8) 07/23/23 05:35 Eos # (Auto) 0.1 x10^3/uL (0.0-0.2) 07/23/23 05:35 Baso # (Auto) 0.0 X10^3/uL (0.0-0.1) 07/23/23 05:35 Absolute Nucleated RBC 0.3 /100WBC 07/23/23 05:35 D-Dimer < 0.27 ug/ml (0.0-0.57) 07/21/23 16:08 Sodium 141 mmol/L (136-145) 07/23/23 05:35 Corrected Sodium TNP 07/23/23 05:35 Potassium 4.4 mmol/L (3.5-5.1) 07/23/23 05:35 Chloride 106 mmol/L (98-107) 07/23/23 05:35 Carbon Dioxide 27.4 mmol/L (21-32) 07/23/23 05:35 BUN 7 mg/dL (7-18) 07/23/23 05:35 Creatinine 0.89 mg/dL (0.55-1.02) 07/23/23 05:35 Est GFR (MDRD) Af Amer > 60 (>60) 07/23/23 05:35 Est GFR (MDRD) Non-Af > 60 (>60) 07/23/23 05:35 Glucose 80 mg/dL (65-99) 07/23/23 05:35 Hemoglobin A1c 6.0 % 07/23/23 05:35 Calcium 8.6 mg/dL (8.5-10.1) 07/23/23 05:35 Corrected Calcium TNP 07/23/23 05:35 Magnesium 2.3 mg/dL (2.0-2.9) 07/21/23 16:08 Total Bilirubin 0.40 mg/dL (0.2-1.0) 07/23/23 05:35 AST 16 Units/L (15-37) 07/23/23 05:35 ALT 15 Units/L (12-78) 07/23/23 05:35 Alkaline Phosphatase 72 Units/L (46-116) 07/23/23 05:35 Creatine Kinase 176 Units/L (26-192) 07/21/23 16:08 Troponin I High Sens 5.0 ng/L (4.0-60.0) 07/21/23 16:08 B-Natriuretic Peptide 8.1 pg/mL (0-79) 07/21/23 16:08 Total Protein 7.5 g/dL (6.4-8.2) 07/23/23 05:35 Albumin 3.5 g/dL (3.4-5.0) 07/23/23 05:35 Globulin 4.0 g/dL (2.5-4.5) 07/23/23 05:35 Albumin/Globulin Ratio 0.9 Ratio (1.1-2.1) L 07/23/23 05:35 SARS-CoV-2 (PCR) Negative (NEGATIVE) 07/21/23 15:45 Influenza Type A (PCR) Negative (NEGATIVE) 07/21/23 15:45 Influenza Type B (PCR) Negative (NEGATIVE) 07/21/23 15:45 RSV (PCR) Negative (NEGATIVE) 07/21/23 15:45 - Plan (1) Bronchopneumonia Status: Acute Plan: NORMAL SALINE AT 75 ML/HR, ZOSYN 4.5G IV TID, DUONEBS QID, PULMICORT NEBS BID, TUSSIONEX 5ML Q12H PRN, PROBIOTICS DAILY, MILK OF MAGNESIA 30ML Q12H PRN. WE RESUMED HER HOME MEDICATIONS OF XARELTO, HYDRALAZINE, VITAMIN D2, PANTOPRAZOLE, MELOXICAM, HCTZ, FLONASE, AND TESSALON PERLES. (2) Shortness of breath Status: Acute (3) Chest pain, rule out acute myocardial infarction Status: Acute (4) History of pulmonary embolus (PE) Status: Chronic Plan: OBTAIN CHEST CTA (5) HTN (hypertension) Status: Chronic Qualifiers: Hypertension type: primary hypertension Qualified Code(s): I10 - Essential (primary) hypertension (6) GERD (gastroesophageal reflux disease) Status: Chronic Qualifiers: Esophagitis presence: esophagitis presence not specified Qualified Code(s): K21.9 - Gastro-esophageal reflux disease without esophagitis (7) Allergic rhinitis Status: Chronic Qualifiers: Allergic rhinitis trigger: unspecified Allergic rhinitis seasonality: unspecified Qualified Code(s): J30.9 - Allergic rhinitis, unspecified
--- NOTE | 2023-07-23 11:50 | PCM.PROG ---
Progress Note - Progress Note for Day of Date of Exam: 07/23/23 - Subjective Subjective: IS CURRENTLY OBSERVATION STATUS FOR TREATMENT OF BRONCHOPNEUMONIA, SHORTNESS OF BREATH, AND CHEST PAIN RULE OUT ACUTE TN. TODAY, SHE IS ALERT AND ORIENTED, SITTING UP IN BED ON MORNING ROUDNS. SHE CONTINUES TO REPORT SHORTNESS OF BREATH AND AN OCCASIONAL COUGH. SHE ALSO COMPLAINS OF DIFFICULTY SWALLOWING AND OCCASIONAL EPIGASTRIC PAIN. NURSING STAFF REPORTS THAT SHE HAS HAD AN UNEVENTFUL NIGHT. HER OXYGEN SATURATIONS HAVE REMAINED IN THE UPPER 90S ON ROOM AIR. UPON EXAMINATION, HEART IS REGULAR IN RATE AND RHYTHM. BILATERAL LUNGS ARE NOTED WITH DIMINISHED LUNG SOUNDS THROUGHOUT. ABDOMEN IS ROUND, SOFT, AND NON-TENDER WITH NORMAL BOWEL SOUNDS NOTED IN ALL QUADRANTS. GOOD RANGE OF MOTION NOTED TO UPPER AND LOWER EXTREMITIES WITH NO EDEMA NOTED. HER VITALS THIS MORNING ARE: 97.9-73-18-98%-143/72. LABS WERE OBTAINED. WBC 4.6, RBC 5.17, HGB 13.0, HCT 40.4, PLT COUNT 162, SODIUM 141, POTASSIUM 4.4, CHLORIDE 106, BUN 7, CREATININE 0.89, GLUCOSE 80, CALCIUM 8.6, TOTAL BILI 0.40, AST 16, ALT 15, ALK SCOTTY 72, TOTAL PROTEIN 7.5, ALBUMIN 3.5. BLOOD CULTURES ARE PENDING. A CHEST CTA WAS OBTAINED THIS MORNING AND REVEALED: No central PE. No discernible peripheral PE but evaluation is mildly limited. Heart is mildly enlarged. Mild dependent subsegmental atelectasis. SHE IS CURRENTLY RECEIVING NORMAL SALINE AT 75 ML/HR, ZOSYN 4.5G IV TID, DUONEBS QID, PULMICORT NEBS BID, TUSSIONEX 5ML Q12H PRN, PROBIOTICS DAILY, MILK OF MAGNESIA 30ML Q12H PRN. WE RESUMED HER HOME MEDICATIONS OF XARELTO, HYDRALAZINE, VITAMIN D2, PANTOPRAZOLE, MELOXICAM, HCTZ, FLONASE, AND TESSALON PERLES. WE WILL CONTINUE WITH CURRENT PLAN OF CARE TODAY. WE WILL ALSO ADD PEPCID 20MG BID AND GI COCKTAIL QID. OTHERWISE, WE PLAN TO FOLLOW UP WITH AM LABS AND CONTINUE TO MONITOR. TIME SPENT ON CLINICAL ASSESSMENT, REVIEWING LABS AND IMAGING, DECISION MAKING, AND DOCUMENTATION GREATER THAN 45 MINUTES. - Past Medical Family Social History Past Med/Fam/Surg Hx: No changes since H&P Allergies: Allergies moxifloxacin [From Avelox] Allergy (Verified 01/01/21 13:41) - Review of Systems ROS: No change since H&P - Vital Signs and I&O's Vital Signs: Vital Signs Temperature 97.9 F Temperature 98.1 F Pulse Rate [Right Radial] 73 Pulse Rate [Right Radial] 74 Pulse Rate 78 Respiratory Rate 18 Respiratory Rate 18 Respiratory Rate 18 Blood Pressure [Left Arm] 143/72 Blood Pressure [Left Arm] 175/77 O2 Sat by Pulse Oximetry 98 O2 Sat by Pulse Oximetry 98 O2 Sat by Pulse Oximetry 100 Intake and Output: Intake & Output 07/20/23 07/21/23 07/22/23 07/23/23 11:59 11:59 11:59 11:59 Intake Total 1428 / 1428 2242 / 2242 Output Total 320 / 320 Balance 1428 / 1428 1922 / 1922 - Physical Exam Oriented: Normal Eyes: Normal Ear: Normal Nose: Normal Throat: Normal Respiratory: Normal Cardiovascular: Normal : Normal Auscultation: Bowel Sounds: Normal Palpation: Normal Tenderness: Normal Skin: Normal Musculoskeletal: Normal Psychiatric: Normal Affect: Normal Speech Pattern: Clear, Appropriate - Laboratory and Diagnostics Result Diagrams: 07/23/23 05:35 07/23/23 05:35 Labs: 07/21/23 16:08 Blood Blood Culture - Preliminary 07/21/23 15:44 Blood Blood Culture - Preliminary Laboratory WBC 4.6 X10^3/uL (3.6-10.0) 07/23/23 05:35 RBC 5.17 X10^6/uL (3.5-5.4) 07/23/23 05:35 Hgb 13.0 g/dL (12.0-16.0) 07/23/23 05:35 Hct 40.4 % (36.0-47.0) 07/23/23 05:35 MCV 78.2 fL (80.0-100.0) L 07/23/23 05:35 MCH 25.1 pg (27.0-34.0) L 07/23/23 05:35 MCHC 32.1 g/dL (33.0-35.0) L 07/23/23 05:35 RDW 15.7 % (11.6-16.5) 07/23/23 05:35 Plt Count 162 X10^3/uL (150.0-450.0) 07/23/23 05:35 MPV 9.2 fL (7.4-11.0) 07/23/23 05:35 Neut % (Auto) 35.0 % (42.0-75.0) L 07/23/23 05:35 Lymph % (Auto) 53.7 % (21.0-51.0) H 07/23/23 05:35 Phelps % (Auto) 8.6 % (0.0-13.0) 07/23/23 05:35 Eos % (Auto) 1.8 % (0.9-2.9) 07/23/23 05:35 Baso % (Auto) 0.9 % (0.2-1.0) 07/23/23 05:35 Neut # (Auto) 1.6 x10^3/uL (2.2-4.8) L 07/23/23 05:35 Lymph # (Auto) 2.5 X10^3/uL (1.3-2.9) 07/23/23 05:35 Phelps # (Auto) 0.4 x10^3/uL (0.3-0.8) 07/23/23 05:35 Eos # (Auto) 0.1 x10^3/uL (0.0-0.2) 07/23/23 05:35 Baso # (Auto) 0.0 X10^3/uL (0.0-0.1) 07/23/23 05:35 Absolute Nucleated RBC 0.3 /100WBC 07/23/23 05:35 D-Dimer < 0.27 ug/ml (0.0-0.57) 07/21/23 16:08 Sodium 141 mmol/L (136-145) 07/23/23 05:35 Corrected Sodium TNP 07/23/23 05:35 Potassium 4.4 mmol/L (3.5-5.1) 07/23/23 05:35 Chloride 106 mmol/L (98-107) 07/23/23 05:35 Carbon Dioxide 27.4 mmol/L (21-32) 07/23/23 05:35 BUN 7 mg/dL (7-18) 07/23/23 05:35 Creatinine 0.89 mg/dL (0.55-1.02) 07/23/23 05:35 Est GFR (MDRD) Af Amer > 60 (>60) 07/23/23 05:35 Est GFR (MDRD) Non-Af > 60 (>60) 07/23/23 05:35 Glucose 80 mg/dL (65-99) 07/23/23 05:35 Hemoglobin A1c 6.0 % 07/23/23 05:35 Calcium 8.6 mg/dL (8.5-10.1) 07/23/23 05:35 Corrected Calcium TNP 07/23/23 05:35 Magnesium 2.3 mg/dL (2.0-2.9) 07/21/23 16:08 Total Bilirubin 0.40 mg/dL (0.2-1.0) 07/23/23 05:35 AST 16 Units/L (15-37) 07/23/23 05:35 ALT 15 Units/L (12-78) 07/23/23 05:35 Alkaline Phosphatase 72 Units/L (46-116) 07/23/23 05:35 Creatine Kinase 176 Units/L (26-192) 07/21/23 16:08 Troponin I High Sens 5.0 ng/L (4.0-60.0) 07/21/23 16:08 B-Natriuretic Peptide 8.1 pg/mL (0-79) 07/21/23 16:08 Total Protein 7.5 g/dL (6.4-8.2) 07/23/23 05:35 Albumin 3.5 g/dL (3.4-5.0) 07/23/23 05:35 Globulin 4.0 g/dL (2.5-4.5) 07/23/23 05:35 Albumin/Globulin Ratio 0.9 Ratio (1.1-2.1) L 07/23/23 05:35 SARS-CoV-2 (PCR) Negative (NEGATIVE) 07/21/23 15:45 Influenza Type A (PCR) Negative (NEGATIVE) 07/21/23 15:45 Influenza Type B (PCR) Negative (NEGATIVE) 07/21/23 15:45 RSV (PCR) Negative (NEGATIVE) 07/21/23 15:45 - Plan (1) Bronchopneumonia Status: Acute Plan: NORMAL SALINE AT 75 ML/HR, ZOSYN 4.5G IV TID, DUONEBS QID, PULMICORT NEBS BID, TUSSIONEX 5ML Q12H PRN, PROBIOTICS DAILY, MILK OF MAGNESIA 30ML Q12H PRN, PEPCID 20MG IV BID, PROTONIX 40MG IV BID, AND GI COCKTAIL 15ML QID. WE RESUMED HER HOME MEDICATIONS OF XARELTO, HYDRALAZINE, VITAMIN D2, MELOXICAM, HCTZ, FLONASE, AND TESSALON PERLES. (2) Shortness of breath Status: Acute (3) Chest pain, rule out acute myocardial infarction Status: Acute (4) History of pulmonary embolus (PE) Status: Chronic (5) HTN (hypertension) Status: Chronic Qualifiers: Hypertension type: primary hypertension Qualified Code(s): I10 - Essential (primary) hypertension (6) GERD (gastroesophageal reflux disease) Status: Chronic Qualifiers: Esophagitis presence: esophagitis presence not specified Qualified Code(s): K21.9 - Gastro-esophageal reflux disease without esophagitis (7) Allergic rhinitis Status: Chronic Qualifiers: Allergic rhinitis trigger: unspecified Allergic rhinitis seasonality: unspecified Qualified Code(s): J30.9 - Allergic rhinitis, unspecified
[2023-07-23] MEDS ORDERED: XARELTO PO SCH (21:00)
[2023-07-24] MEDS: NS 1/2 1,000 ML IV 1,000 ML IV SCH ×2 (03:21→05:19)
[2023-07-24] MEDS: APRESOLINE TAB 25 MG PO SCH (05:10)
[2023-07-24] MEDS: ZOSYN VIAL 4.5 GRAMS 4.5 G in NS 100 ML IV 100 ML IV SCH (05:10)
--- NOTE | 2023-07-24 05:12 | RAD ---
EXAM: CHEST, 1 VIEW HISTORY: chest pain, sob ; HTN, GERD SX: CSection, Hyst COMPARISON: 05/21/2024 FINDINGS: The cardiomediastinal silhouette is normal in size. No acute airspace disease. No pneumothorax or effusion. No acute osseous abnormality. IMPRESSION: No acute cardiopulmonary disease. THIS IS AN ELECTRONICALLY VERIFIED FINAL REPORT 07/24/2023 5:09 AM - Electronically signed by Eric Beckham MD
[2023-07-24] MEDS ORDERED: NS 1/2 1,000 ML IV 1,000 ML IV ONE (05:14)
[2023-07-24 06:30] LABS: BASOPHILS % (AUTO) 0.6 % (0.2-1.0); EOSINOPHILS # (AUTO) 0.1 x10^3/uL (0.0-0.2); EOSINOPHILS % (AUTO) 2.1 % (0.9-2.9); HEMATOCRIT 36.5 % (36.0-47.0); HEMOGLOBIN 11.8 g/dL (12.0-16.0); LYMPHOCYTES # (AUTO) 1.8 X10^3/uL (1.3-2.9); LYMPHOCYTES % (AUTO) 40.7 % (21.0-51.0); MEAN CORPUSCULAR HEMOGLOBIN 25.4 pg (27.0-34.0); MEAN CORPUSCULAR HGB CONC 32.3 g/dL (33.0-35.0); MEAN CORPUSCULAR VOLUME 78.6 fL (80.0-100.0); MEAN PLATELET VOLUME 9.1 fL (7.4-11.0); MONOCYTES # (AUTO) 0.4 x10^3/uL (0.3-0.8); MONOCYTES % (AUTO) 9.5 % (0.0-13.0); NEUTROPHILS % (AUTO) 47.1 % (42.0-75.0); PLATELET COUNT 162 X10^3/uL (150.0-450.0); RED BLOOD COUNT 4.64 X10^6/uL (3.5-5.4); RED CELL DISTRIBUTION WIDTH 15.6 % (11.6-16.5); WHITE BLOOD COUNT 4.3 X10^3/uL (3.6-10.0)
[2023-07-24 06:55] LABS: ALANINE AMINOTRANSFERASE 15 Units/L (12-78); ALBUMIN 3.2 g/dL (3.4-5.0); ALKALINE PHOSPHATASE 69 Units/L (46-116); ASPARTATE AMINO TRANSFERASE 11 Units/L (15-37); BLOOD UREA NITROGEN 8 mg/dL (7-18); CALCIUM 8.3 mg/dL (8.5-10.1); CARBON DIOXIDE 25.5 mmol/L (21-32); CHLORIDE 105 mmol/L (98-107); COR CA(FOR HYPOALB) 8.9 mg/dL (8.5-10.1); CREATININE 1.02 mg/dL (0.55-1.02); GLUCOSE 97 mg/dL (65-99); POTASSIUM 4.1 mmol/L (3.5-5.1); SODIUM 139 mmol/L (136-145); TOTAL PROTEIN 6.7 g/dL (6.4-8.2); eGFR NON BLACK RACES 58 (>60)
[2023-07-24 08:41] VITALS: BP 146/67; PULSE 66; RESP 18; TEMP 97.9
[2023-07-24] MEDS: FLONASE NASAL SPRAY ENOSTRIL SCH (09:12)
[2023-07-24] MEDS: MOBIC TAB 15 MG PO SCH (09:13)
[2023-07-24] MEDS: LEVSIN/MAALOX/LIDOC VISC PO SCH (09:13)
[2023-07-24] MEDS: HYDROCHLOROTHIAZIDE 25 MG TAB PO SCH (09:13)
[2023-07-24] MEDS: PROTONIX INJ 40 MG VIAL IVP SCH (09:14)
[2023-07-24] MEDS: PEPCID 20 MG VIAL 20 MG in NS 50 ML IV 50 ML IV SCH (09:14)
[2023-07-24] MEDS: VSL#3 PO SCH (09:14)
[2023-07-24] MEDS: ROBITUSSIN DM PO SCH (09:14)
[2023-07-24] MEDS: COLACE CAP 100 MG PO PRN (09:15)
[2023-07-24] MEDS: DUONEB 0.5 MG/3 MG (3 mL) NEB SCH (09:51)
[2023-07-24] MEDS: PULMICORT NEB TX 0.5 MG NEB SCH (09:52)
[2023-07-24 10:08] VITALS: O2SAT 99
== END 2023-07-24 11:45 | disposition home or self-care (01) ==
LOC: MED/SURG
PROVIDERS: ADMIT Internal Medicine; ATTEND Internal Medicine
DX: R06.02 Shortness of breath; I25.10 Atherosclerotic heart disease of native coronary artery without angina pectoris; K21.9 Gastro-esophageal reflux disease without esophagitis; I10 Essential (primary) hypertension; R53.1 Weakness; Z86.711 Personal history of pulmonary embolism; J18.0 Bronchopneumonia, unspecified organism; R07.9 Chest pain, unspecified; J30.9 Allergic rhinitis, unspecified; Z20.822 Contact with and (suspected) exposure to COVID-19; E87.6 Hypokalemia; R13.11 Dysphagia, oral phase